=== PATIENT | male | born 1955 | race African-American/Black ===

== ENCOUNTER → 2016-09-05 | Outpatient (CLI) | payer OTHER ==
[~2016-09-05] MED LIST: ANT125 PO; MULTTAB58 PO; PRED-301 PO; [UNRECOGNIZED DRUG - CODE]; [UNRECOGNIZED DRUG - CODE] PO
[2016-09-05 15:54] LABS: BASO % 0.4 %; BASO ABS # 0.03 K/uL (0-0.2); COMPLETE YES; EOS % 1.1 %; IG% 0.2 %; LYMPH % 13.2 %; LYMPH ABS # 1.09 K/uL (1.2-3.4); MEAN CELL VOLUME 87.8 fL (80-100); MEAN CORPUSCULAR HEMOGLOBIN 29.5 pg (25-34); MEAN CORPUSCULAR HGB CONC 33.6 g/dl (32-36); MEAN PLATELET VOLUME 9.7 fL (7.4-10.4); MONO % 7.4 %; NEUT % 77.7 %; PLATELET COUNT 233 K/uL (130-400); RED BLOOD COUNT 5.01 M/uL (4.7-6.1); WHITE BLOOD COUNT 8.24 K/uL (4.8-10.8)
[2016-09-05 16:18] LABS: ALT/SGPT 75 U/L (12-78); AST/SGOT 38 U/L (15-37); BLOOD UREA NITROGEN 15 mg/dl (7-18); BUN/CREATININE RATIO 12.2 (10-20); CALCIUM 9.1 mg/dl (8.5-10.1); CARBON DIOXIDE 27 mmol/L (21-32); CHLORIDE 106 mmol/L (98-107); GLUCOSE 101 mg/dl (70-99); POTASSIUM 4.7 mmol/L (3.5-5.1); SODIUM 140 mmol/L (136-145)
[2016-09-05 16:29] LABS: ALB/GLOB RATIO 0.8 (0.9-2); ALKALINE PHOSPHATASE 173 U/L (45-117); CHOLESTEROL 273 mg/dl (0-200); CHOLESTEROL/HDL RATIO 7.2; HDL CHOLESTEROL 38 mg/dl; THYROID STIMULATING HORMONE 0.261 uIu/ml (0.300-4.500); TRIGLYCERIDES 257 mg/dl (0-150); VERY LOW DENSITY LIPOPROT CALC 51 mg/dl
[2016-09-06 06:17] LABS: ESTIMATED AVERAGE GLUCOSE 146 mg/dl; HA1C FLAG Normal (Normal)
[2016-09-08 14:46] LABS: ALBUMIN 4.6 G/DL (3.8-4.8); GAMMA GLOBULIN 1.5 G/DL (0.8-1.7); TOTAL PROTEIN 8.4 G/DL (6.2-8.3)
== END | disposition home or self-care (01) ==
LOC: C.LAB 14:39
PROVIDERS: ATTEND Internal Medicine
DX: R73.9 Hyperglycemia, unspecified (principal); R53.83 Other fatigue; E78.5 Hyperlipidemia, unspecified; D86.9 Sarcoidosis, unspecified; Z11.59 Encounter for screening for other viral diseases; R35.0 Frequency of micturition; N40.0 Benign prostatic hyperplasia without lower urinary tract symptoms

== ENCOUNTER → 2016-09-26 | Outpatient (CLI) | payer OTHER ==
--- NOTE | 2016-09-26 13:06 | DIAGNOSTIC IMAGING REPORT ---
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 Bilateral hilar fullness considered stable. Conglomerate densities of the mid and upper lung regions stable to minimally progressive primarily on the right. Diaphragms remain smooth. Diffuse interstitial fibrotic change remains stable. IMPRESSION: 1. Stable hilar fullness with unchanging diffuse bilateral interstitial change. 2. Slight increase in size of a conglomerate density of the right mid lung region. 3. All additional parenchymal findings are stable. Electronically signed by: Mahad Edwards M.D. 09/26/2016 1:05 PM Dictated Date/Time: 09/26/2016 1:03 PM
== END | disposition home or self-care (01) ==
LOC: C.RAD1850 12:35
PROVIDERS: ATTEND Internal Medicine Pulmonary Disease
DX: D86.0 Sarcoidosis of lung (principal)

== ENCOUNTER 2016-12-06 08:55 | Day surgery (SDC) | payer OTHER ==
[2016-12-06] VITALS (9 sets, daily range): BP systolic 109–131; BP diastolic 50–69; PULSE 48–53; TEMP 36.4–37; O2SAT 93–97; Ht 182.9 cm; Wt 95.7 kg
[~2016-12-06] VITALS: Ht 182.9 cm; Wt 95.7 kg
[~2016-12-06 08:55] MED LIST changes: -MULTTAB58 PO; -PRED-301 PO; -[UNRECOGNIZED DRUG - CODE] PO
[2016-12-06] MEDS ORDERED: PRED-301 PO (09:18)
[2016-12-06] MEDS ORDERED: [UNRECOGNIZED DRUG - CODE] PO (09:18)
[2016-12-06] MEDS ORDERED: MULTTAB58 PO (09:18)
[2016-12-06 09:30] LABS: HEMATOCRIT 43.1 % (42-52); MEAN CELL VOLUME 87.6 fL (80-100); MEAN CORPUSCULAR HEMOGLOBIN 29.5 pg (25-34); MEAN PLATELET VOLUME 9.3 fL (7.4-10.4); PLATELET COUNT 206 K/uL (130-400); RED BLOOD COUNT 4.92 M/uL (4.7-6.1); WHITE BLOOD COUNT 3.76 K/uL (4.8-10.8)
[2016-12-06 09:34] LABS: MEAN CORPUSCULAR HGB CONC 33.6 g/dl (32-36)
[2016-12-06 09:41] LABS: PROTHROMBIN TIME (PATIENT) 10.7 SECONDS (9.0-12.0)
--- NOTE | 2016-12-06 10:52 | Discharge Instructions ---
Discharge Instructions Procedure Procedure Date: Dec 06, 2016. Reason for visit: Low Vit D Level, Abnormal Labs. Discharge Discharge Date: Dec 06, 2016. Discharge Diagnosis: sarcoidosis. successful u/s guided percutaneous random liver biopsy of right lobe. Medications Restart Stopped Medication(s): Resume home meds Instructions Activity Recommendations: No limitations Return to School/Work: no limitations Recommended Home Diet: No Limitations Provider Instructions: Ultrasound guided Liver Core Biopsy performed [ Right] lobe liver using 18g needle without complication. Allergies Coded Allergies: Penicillins (Verified Adverse Reaction, Mild, SYNCOPE, 12/06/16) Xiomara Vega Recommendations: Call your doctor if: * Temperature above 101 degrees * Pain not relieved by pain medicine ordered * There is increased drainage or redness from any incision * You have any unanswered questions or concerns. Your Doctors Instructions noted above were prepared by provider Simon Mahan. Patient Signature Section: Patient Instructions Signature Page Anders Ahumada Patient (or Guardian) Signature/Date: I have read and understand the instructions given to me by my caregivers. Caregiver/RN/Doctor Signature/Date: The above-named patient and/or guardian has received patient instructions on this date. + Original Patient Signature Page (only) stays with chart. Please make copy for patient.
[2016-12-06] MEDS ORDERED: ACETAMINOPHEN 500 MG TAB PO PRN (11:00)
--- NOTE | 2016-12-06 11:22 | DIAGNOSTIC IMAGING REPORT ---
GUIDANCE NEEDLE PLACEMENT CLINICAL HISTORY: 61 years-old Male presenting with Please stage fibrosis, eval for evidence of NAFLD, sarcoid, AIH. TECHNIQUE: Real-time grayscale and limited color Doppler ultrasound imaging of the right upper quadrant of the abdomen was performed for ultrasound-guided core needle biopsy of the liver. COMPARISON: 08/27/2012. PROCEDURE: The risks, benefits, and alternatives to the procedure were discussed with the patient. Written informed consent was obtained. The patient was placed left lateral decubitus position on the ultrasound table. Using a subcostal approach, the right lobe of the liver was targeted with ultrasound for an appropriate location for random biopsy. The right upper quadrant was prepped and draped in the usual sterile fashion. The skin and deeper soft tissues were infiltrated with 1% lidocaine for anesthesia. The right lobe of the liver targeted under ultrasound guidance with an 18-gauge core needle biopsy. One pass was performed. The specimen was sent to pathology. The patient tolerated the procedure well, and will be observed in the department per protocol. IMPRESSION: Successful ultrasound-guided percutaneous random core needle biopsy of the liver. Electronically signed by: Simon Mahan M.D. 12/06/2016 11:21 AM Dictated Date/Time: 12/06/2016 11:18 AM
== END 2016-12-06 13:50 | disposition home or self-care (01) ==
LOC: C.ACU 08:55
PROVIDERS: ATTEND Internal Medicine Gastroenterology
DX: E55.9 Vitamin D deficiency, unspecified (principal); D86.9 Sarcoidosis, unspecified; K73.9 Chronic hepatitis, unspecified

== ENCOUNTER → 2016-12-26 | Outpatient (CLI) | payer OTHER ==
[~2016-12-26] MED LIST changes: -ANT125 PO; +MULTTAB58 PO; +PRED-301 PO; -[UNRECOGNIZED DRUG - CODE]; +[UNRECOGNIZED DRUG - CODE] PO
[2016-12-26 16:30] LABS: BLOOD UREA NITROGEN 25 mg/dl (7-18); CALCIUM 9.3 mg/dl (8.5-10.1); CARBON DIOXIDE 24 mmol/L (21-32); CHLORIDE 107 mmol/L (98-107); GLUCOSE 93 mg/dl (70-99); SODIUM 138 mmol/L (136-145)
[2016-12-27 06:14] LABS: ESTIMATED AVERAGE GLUCOSE 137 mg/dl; HA1C FLAG Normal (Normal)
== END | disposition home or self-care (01) ==
LOC: C.LABSPEC 14:57
PROVIDERS: ATTEND Internal Medicine
DX: E11.9 Type 2 diabetes mellitus without complications (principal)

== ENCOUNTER → 2016-12-26 | Outpatient (CLI) | payer OTHER ==
--- NOTE | 2016-12-26 13:03 | DIAGNOSTIC IMAGING REPORT ---
LEFT HEEL MIN 2 VIEWS CLINICAL HISTORY: 61 years-old Male presenting with L HEEL PAIN. TECHNIQUE: Frontal and lateral views of the calcaneus were obtained. COMPARISON: None. FINDINGS: Os trigonum noted. No acute fracture or subluxation. No abnormal sclerosis in the calcaneus to suggest stress reaction. No significant degenerative change, including no bony spurring at the inferior calcaneus. IMPRESSION: No acute osseous injury of the calcaneus. Electronically signed by: Simon Mahan M.D. 12/26/2016 1:02 PM Dictated Date/Time: 12/26/2016 1:01 PM
== END | disposition home or self-care (01) ==
LOC: C.RAD 12:33
PROVIDERS: ATTEND Internal Medicine
DX: M79.672 Pain in left foot (principal)

== ENCOUNTER 2017-03-29 16:50 | Emergency (ER) | payer OTHER ==
[~2017-03-29] VITALS: Ht 182.9 cm; Wt 80.3 kg
[2017-03-29 16:55] VITALS: TEMP 36.3; Ht 182.9 cm; Wt 80.3 kg
[2017-03-29] MEDS ORDERED: OPTIRAY 320 IV PRN (18:00)
--- NOTE | 2017-03-29 18:09 | EMERGENCY ROOM VISIT NOTE ---
History First contact with patient: 17:05 Chief Complaint: NECK PAIN Stated Complaint: PAIN IN NECK History of Present Illness The patient is a 61 year old male who presents to the Emergency Room with complaints of right neck pain The patient says that the pain began at 4pm today as sudden right sided neck pain that radiated to his jaw. He reports that his right jaw became tight and felt similar to the sensation of eating something sour. The patient took two Advil, sat down and reports that the pain dissipated after a couple minutes. Patient denies having this particular pain in the past or injury to his neck. Patient denies SOB, LE edema or syncopal episodes. Patient has a PMH of sarcoidosis. He denies h/o HTN, HLD, diabetes. Patient does have a family history significant for UT and stroke in his mother and intracranial aneurysm in his sister. Patient is a current 8 pack year smoker. Review of Systems see below Constitutional: No fever, No chills, No sweats Respiratory: No cough, No sputum, No wheezing, No shortness of breath, No dyspnea on exertion Cardiovascular: No chest pain, No orthopnea, No edema, No palpitations Abdomen: No pain, No nausea, No vomiting, No diarrhea Past Medical/Surgical History Medical Problems: (1) Kidney problem Social History Smoking Status: Current Some Day Smoker Marital Status: Current/Historical Medications Scheduled Multiple Vitamin (Multivitamin), 1 TAB PO DAILY Prednisone (Prednisone), 5 MG PO DAILY Ursodiol (Nickolas 250), 500 MG PO DAILY Physical Exam Vital Signs Date Time Temp Pulse Resp B/P (MAP) Pulse Ox O2 Delivery O2 Flow Rate FiO2 03/29/17 20:34 59 16 118/79 97 03/29/17 18:50 53 18 116/80 94 Room Air 03/29/17 17:31 56 03/29/17 16:55 36.3 78 16 121/76 98 Room Air Physical Exam see below General Appearance: WD/WN, no apparent distress Head: normocephalic, atraumatic Neck: supple, no adenopathy, no carotid bruits Respiratory/Chest: chest non-tender, lungs clear, normal breath sounds, no respiratory distress, no accessory muscle use Cardiovascular: regular rate, rhythm, no edema, no gallop Abdomen / GI: normal bowel sounds, non tender, soft Neurologic/Psych: alert, normal mood/affect, oriented x 3 Medical Decision & Procedures ER Provider Diagnostic Interpretation: CHEST ONE VIEW PORTABLE HISTORY: neck pain, radiating to arm COMPARISON: Chest 09/26/2016. FINDINGS: No pleural effusions. No pneumothorax. The heart is stable in size. Bilateral hilar prominence and course interstitial thickening persists. Focal upper lobe airspace opacities also unchanged. No new focal lung consolidations. No evidence for pulmonary edema. IMPRESSION: No change compared to the prior studies with bilateral hilar fullness and scattered interstitial and parenchymal densities within the lungs. The chronic nature of this finding favors the possibility of sarcoidosis. No acute process within the chest. NECK CTA HISTORY: Neck pain. TECHNIQUE: Multiaxial CT images of the neck were performed following the intravenous administration of contrast to evaluate the major cervical vessels. Maximum intensity projection images were also obtained. All measurements were calculated based on NASCET criteria. A dose lowering technique was utilized adhering to the principles of ALARA. COMPARISON STUDY: Neck CT 06/16/2010. FINDINGS: The aortic arch and proximal great vessels are widely patent. The bilateral common carotid arteries and bilateral internal carotid arteries are widely patent. There are tortuous distal bilateral internal carotid arteries. Minimal calcified plaque within the right carotid bulb. The left vertebral artery is widely patent. The cervical portion of the right vertebral artery is also patent. Focal area of approximately 75% stenosis within the intracranial portion of the distal right vertebral artery. Bilateral internal jugular veins appear patent. Chronic hypoplastic left maxillary sinus which demonstrates mild mucosal thickening. No cervical lymphadenopathy. There is mediastinal and bilateral hilar lymphadenopathy. Dominant subcarinal lymph node measures 3.5 cm. The main pulmonary arteries are patent. No pneumothorax. Multifocal irregular nodular airspace opacities demonstrated in upper lobe predominance with confluent right perihilar consolidation. Mild degenerative disc disease seen within the cervical spine. No fractures. IMPRESSION: 1. No significant stenosis, occlusion, or dissection identified within the carotid or cervical vertebral arteries. 2. Focal area of approximately 75% stenosis within the intracranial portion of the distal right vertebral artery. 3. Mediastinal and bilateral hilar lymphadenopathy. There are also multifocal upper lobe predominant irregular nodular airspace opacities seen within the lungs. These findings favor sarcoidosis. However, an underlying neoplastic/metastatic process cannot be excluded. Laboratory Results 03/29/17 18:10 Red Blood Count 4.65, Mean Corpuscular Volume 88.8, Mean Corpuscular Hemoglobin 30.8, Mean Corpuscular Hemoglobin Concent 34.6, Mean Platelet Volume 9.6, Neutrophils (%) (Auto) 68.4, Lymphocytes (%) (Auto) 17.1, Monocytes (%) (Auto) 10.2, Eosinophils (%) (Auto) 3.0, Basophils (%) (Auto) 1.1, Neutrophils # (Auto ) 3.16, Lymphocytes # (Auto) 0.79, Monocytes # (Auto) 0.47, Eosinophils # (Auto ) 0.14, Basophils # (Auto) 0.05 03/29/17 18:10 Test 03/29/17 18:10 03/29/17 18:25 03/29/17 19:52 White Blood Count 4.62 K/uL (4.8-10.8) Red Blood Count 4.65 M/uL (4.7-6.1) Hemoglobin 14.3 g/dL (14.0-18.0) Hematocrit 41.3 % (42-52) Mean Corpuscular Volume 88.8 fL (80-100) Mean Corpuscular Hemoglobin 30.8 pg (25-34) Mean Corpuscular Hemoglobin Concent 34.6 g/dl (32-36) Platelet Count 220 K/uL (130-400) Mean Platelet Volume 9.6 fL (7.4-10.4) Neutrophils (%) (Auto) 68.4 % Lymphocytes (%) (Auto) 17.1 % Monocytes (%) (Auto) 10.2 % Eosinophils (%) (Auto) 3.0 % Basophils (%) (Auto) 1.1 % Neutrophils # (Auto) 3.16 K/uL (1.4-6.5) Lymphocytes # (Auto) 0.79 K/uL (1.2-3.4) Monocytes # (Auto) 0.47 K/uL (0.11-0.59) Eosinophils # (Auto) 0.14 K/uL (0-0.5) Basophils # (Auto) 0.05 K/uL (0-0.2) RDW Standard Deviation 41.6 fL (36.4-46.3) RDW Coefficient of Variation 12.9 % (11.5-14.5) Immature Granulocyte % (Auto) 0.2 % Immature Granulocyte # (Auto) 0.01 K/uL (0.00-0.02) Est Creatinine Clear Calc Drug Dose 70.4 ml/min Estimated GFR () 73.3 Estimated GFR (Non- 63.2 BUN/Creatinine Ratio 17.0 (10-20) Calcium Level 9.3 mg/dl (8.5-10.1) Total Bilirubin 0.3 mg/dl (0.2-1) Aspartate Amino Transf (AST/SGOT) 39 U/L (15-37) Alanine Aminotransferase (ALT/SGPT) 68 U/L (12-78) Alkaline Phosphatase 135 U/L (45-117) Total Protein 7.9 gm/dl (6.4-8.2) Albumin 3.7 gm/dl (3.4-5.0) Globulin 4.2 gm/dl (2.5-4.0) Albumin/Globulin Ratio 0.9 (0.9-2) Chemistry Specimen Hemolysis Bedside Hemoglobin 16.0 g/dl (14.0-18.0) Bedside Hematocrit 47 % (42-52) Bedside Sodium 133 mEq/L (135-144) Bedside Potassium 6.9 mEq/L (3.3-5.0) Bedside Chloride 102 mEq/L (101-112) Bedside Total CO2 23 mEq/l (24-31) Anion Gap 15.0 mmol/L (16-25) Bedside Blood Urea Nitrogen 35 mg/dl (7-18) Bedside Creatinine 1.9 mg/dl (0.6-1.3) Bedside Glucose (other) 84 mg/dl (70-99) Bedside Ionized Calcium (Stuart) 1.25 mmol/l (1.12-1.32) Bedside Troponin I < 0.030 ng/ml (0-0.045) ECG Rate (beats per minute): 58 Rhythm: normal sinus Findings: no ectopy Change: no significant change ED Course 1730 History and physical performed 1745 ordered labs and imaging 1800 Reaccessed the patient 1845 Patient brought to radiology Medical Decision 61 male PMH of sarcoidosis comes to the ED with right sided neck pain radiating down his right arm Considering the following differential; carotid artery dissection, vertebral artery dissection, ACS, cervical radiculopathy Ordered the following labs; CBC, CMP, Troponin Ordered the following imaging and test; EKG, CXR, CXR, CTA of neck with contrast The patient's history today is not especially suspicious for ACS/CVA, but it was seen prudent to complete a thorough cardiovascular/neurovascular work up considering the patients PMH of immunologic disease as well as his family history of CVA. Patient was found to have unremarkable EKG with no new changes. In addition, the patient was found to have no changes on CXR. Patient's CXR correlated with previous studies that show bilateral hilar opacities consistent with sarcoidosis. 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 This is unlikely the cause of the patient's symptoms, but nonetheless needs to be closely followed up by his PCP. Patient was also instructed to start on 81 mg of ASA daily. Impression Primary Impression: Neck pain Departure Information Dispostion Home / Self-Care Condition GOOD Referrals Alberto Amaro M.D. (PCP) Forms HOME CARE DOCUMENTATION FORM, IMPORTANT VISIT INFORMATION, WORK / SCHOOL INSTRUCTIONS Patient Instructions My [facility] [email or web address] Additional Instructions CHEST PAIN INSTRUCTIONS: DO NOT drive, drink alcohol, operate machinery, or perform dangerous activities today. You Mr. Ahumada, You were seen in the ED for neck pain. Considering your family history, a cerebrovascular workup was initiated. CT of your neck showed some blockage in a artery to your brain. The blockage is not critical at this point and not likely the cause of your pain, but you should follow up very closely with your primary care doctor. In addition, please take 81mg of ASA daily. All other test were unremarkable. Read all the package inserts or medication information paperwork provided. If you have any questions or concerns call your primary provider, pharmacist or the ER for assistance. Rest and drink plenty of fluids as tolerated. Continue current medications. Avoid strenuous activities and anything that worsens your pain. Resume normal activities once your symptoms resolve. Return to the ER immediately for worsening or persistent chest pain, abdominal pain, vomiting, fevers, chest pains, difficulty breathing, worsening of your condition , or as needed. Follow up with your primary physician in 2-3 days for a recheck of your current condition.
--- NOTE | 2017-03-29 18:09 | EMERGENCY ROOM VISIT NOTE ---
History Report prepared by Logan: Shy Dickens Under the Supervision of: Dr. Riki Wilde M.D. 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 He notes that he went to stand up to go brush his teeth and there was a sudden onset of right neck pain. He notes a sour sensation in his jaw. He describes the pain as a cramp and he could not move his jaw. He notes the pain radiated to his jaw and right arm. He notes the episode lasted for 15 minutes. He is not currently in any pain. He also notes leg cramping this morning. He denies any neck injuries, ear pain, diaphoresis, chest pain, shortness of breath, headaches, nausea, vomiting, speech issues, dental issues, leg pain, or leg swelling. He exercises regularly. He notes a history of pre-diabetes. He has a history of sarcoidosis, for which he takes prednisone. He has a family history of CVA and intracranial aneurysm. He denies any history of HLD, HTN, or angina. He took Ibuprofen for the neck pain. 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 He notes cramping pain in jaw. He notes right arm pain. He notes leg cramps. He denies any neck injuries, ear pain, speech issues, dental issues, leg pain, or leg swelling. Review of Systems See HPI for pertinent positives & negatives. A total of 10 systems reviewed and were otherwise negative. Past Medical & Surgical Medical Problems: (1) Kidney problem Sarcoidosis Denies diabetes or hypertension or cardiac disease Old medical records were reviewed. Nurse's notes were reviewed and I agree with. Family History FH: CVA (cerebrovascular accident) FH: colon cancer Intracranial aneurysms Social History Smoking Status: Never Smoker Smokeless Tobacco Use: No Alcohol Use: none Drug Use: none Marital Status: Housing Status: lives with significant other Occupation Status: employed Current/Historical Medications Scheduled Multiple Vitamin (Multivitamin), 1 TAB PO DAILY Prednisone (Prednisone), 5 MG PO DAILY Ursodiol (Nickolas 250), 500 MG PO DAILY Allergies Coded Allergies: Penicillins (Verified Adverse Reaction, Mild, SYNCOPE, 03/29/17) Physical Exam Vital Signs Date Time Temp Pulse Resp B/P (MAP) Pulse Ox O2 Delivery O2 Flow Rate FiO2 03/29/17 20:34 59 16 118/79 97 03/29/17 18:50 53 18 116/80 94 Room Air 03/29/17 17:31 56 03/29/17 16:55 36.3 78 16 121/76 98 Room Air Physical Exam General: Non-ill appearing middle-aged male in no acute distress. HEENT: Normal cephalic atraumatic. Pupils are equal round and reactive to light. Extraocular movements are intact. Oropharynx is pink with moist mucous membranes. No swelling of the mouth lips or tongue. Neck: Supple with a midline trachea. No meningeal signs or stiffness, no JVD or bruits. No Stridor. Non-tender. No edema. Chest: Clear to auscultation bilaterally. No wheezes or rhonchi. No increased work of breathing. Heart: regular rate and rhythm. Abdomen: Soft nontender, nondistended without rebound guarding or rigidity. Extremities: No cyanosis clubbing or edema. No calf tenderness or assymetry Spine/Back. Non tender to palpation. No CVA tenderness Skin: Good turgor without rashes. Neurologic exam: Cranial nerves two through 12 are intact. Motor and sensation are intact and symmetrical throughout. Medical Decision & Procedures ER Provider Diagnostic Interpretation: Radiology results as stated below per my review and radiologist interpretation: CHEST ONE VIEW PORTABLE HISTORY: neck pain, radiating to arm COMPARISON: Chest 09/26/2016. FINDINGS: No pleural effusions. No pneumothorax. The heart is stable in size. Bilateral hilar prominence and course interstitial thickening persists. Focal upper lobe airspace opacities also unchanged. No new focal lung consolidations. No evidence for pulmonary edema. IMPRESSION: No change compared to the prior studies with bilateral hilar fullness and scattered interstitial and parenchymal densities within the lungs. The chronic nature of this finding favors the possibility of sarcoidosis. No acute process within the chest. Electronically signed by: Osiel Estrada M.D. 03/29/2017 6:32 PM Dictated Date/Time: 03/29/2017 6:26 PM NECK CTA HISTORY: Neck pain. TECHNIQUE: Multiaxial CT images of the neck were performed following the intravenous administration of contrast to evaluate the major cervical vessels. Maximum intensity projection images were also obtained. All measurements were calculated based on NASCET criteria. A dose lowering technique was utilized adhering to the principles of ALARA. COMPARISON STUDY: Neck CT 06/16/2010. FINDINGS: The aortic arch and proximal great vessels are widely patent. The bilateral common carotid arteries and bilateral internal carotid arteries are widely patent. There are tortuous distal bilateral internal carotid arteries. Minimal calcified plaque within the right carotid bulb. The left vertebral artery is widely patent. The cervical portion of the right vertebral artery is also patent. Focal area of approximately 75% stenosis within the intracranial portion of the distal right vertebral artery. Bilateral internal jugular veins appear patent. Chronic hypoplastic left maxillary sinus which demonstrates mild mucosal thickening. No cervical lymphadenopathy. There is mediastinal and bilateral hilar lymphadenopathy. Dominant subcarinal lymph node measures 3.5 cm. The main pulmonary arteries are patent. No pneumothorax. Multifocal irregular nodular airspace opacities demonstrated in upper lobe predominance with confluent right perihilar consolidation. Mild degenerative disc disease seen within the cervical spine. No fractures. IMPRESSION: 1. No significant stenosis, occlusion, or dissection identified within the carotid or cervical vertebral arteries. 2. Focal area of approximately 75% stenosis within the intracranial portion of the distal right vertebral artery. 3. Mediastinal and bilateral hilar lymphadenopathy. There are also multifocal upper lobe predominant irregular nodular airspace opacities seen within the lungs. These findings favor sarcoidosis. However, an underlying neoplastic/metastatic process cannot be excluded. Electronically signed by: Osiel Estrada M.D. 03/29/2017 7:27 PM Dictated Date/Time: 03/29/2017 7:18 PM Laboratory Results 03/29/17 18:10 Red Blood Count 4.65, Mean Corpuscular Volume 88.8, Mean Corpuscular Hemoglobin 30.8, Mean Corpuscular Hemoglobin Concent 34.6, Mean Platelet Volume 9.6, Neutrophils (%) (Auto) 68.4, Lymphocytes (%) (Auto) 17.1, Monocytes (%) (Auto) 10.2, Eosinophils (%) (Auto) 3.0, Basophils (%) (Auto) 1.1, Neutrophils # (Auto ) 3.16, Lymphocytes # (Auto) 0.79, Monocytes # (Auto) 0.47, Eosinophils # (Auto ) 0.14, Basophils # (Auto) 0.05 03/29/17 18:10 Test 03/29/17 18:10 03/29/17 18:25 03/29/17 19:52 White Blood Count 4.62 K/uL (4.8-10.8) Red Blood Count 4.65 M/uL (4.7-6.1) Hemoglobin 14.3 g/dL (14.0-18.0) Hematocrit 41.3 % (42-52) Mean Corpuscular Volume 88.8 fL (80-100) Mean Corpuscular Hemoglobin 30.8 pg (25-34) Mean Corpuscular Hemoglobin Concent 34.6 g/dl (32-36) Platelet Count 220 K/uL (130-400) Mean Platelet Volume 9.6 fL (7.4-10.4) Neutrophils (%) (Auto) 68.4 % Lymphocytes (%) (Auto) 17.1 % Monocytes (%) (Auto) 10.2 % Eosinophils (%) (Auto) 3.0 % Basophils (%) (Auto) 1.1 % Neutrophils # (Auto) 3.16 K/uL (1.4-6.5) Lymphocytes # (Auto) 0.79 K/uL (1.2-3.4) Monocytes # (Auto) 0.47 K/uL (0.11-0.59) Eosinophils # (Auto) 0.14 K/uL (0-0.5) Basophils # (Auto) 0.05 K/uL (0-0.2) RDW Standard Deviation 41.6 fL (36.4-46.3) RDW Coefficient of Variation 12.9 % (11.5-14.5) Immature Granulocyte % (Auto) 0.2 % Immature Granulocyte # (Auto) 0.01 K/uL (0.00-0.02) Est Creatinine Clear Calc Drug Dose 70.4 ml/min Estimated GFR () 73.3 Estimated GFR (Non- 63.2 BUN/Creatinine Ratio 17.0 (10-20) Calcium Level 9.3 mg/dl (8.5-10.1) Total Bilirubin 0.3 mg/dl (0.2-1) Aspartate Amino Transf (AST/SGOT) 39 U/L (15-37) Alanine Aminotransferase (ALT/SGPT) 68 U/L (12-78) Alkaline Phosphatase 135 U/L (45-117) Total Protein 7.9 gm/dl (6.4-8.2) Albumin 3.7 gm/dl (3.4-5.0) Globulin 4.2 gm/dl (2.5-4.0) Albumin/Globulin Ratio 0.9 (0.9-2) Chemistry Specimen Hemolysis Bedside Hemoglobin 16.0 g/dl (14.0-18.0) Bedside Hematocrit 47 % (42-52) Bedside Sodium 133 mEq/L (135-144) Bedside Potassium 6.9 mEq/L (3.3-5.0) Bedside Chloride 102 mEq/L (101-112) Bedside Total CO2 23 mEq/l (24-31) Anion Gap 15.0 mmol/L (16-25) Bedside Blood Urea Nitrogen 35 mg/dl (7-18) Bedside Creatinine 1.9 mg/dl (0.6-1.3) Bedside Glucose (other) 84 mg/dl (70-99) Bedside Ionized Calcium (Stuart) 1.25 mmol/l (1.12-1.32) Bedside Troponin I < 0.030 ng/ml (0-0.045) Laboratory studies as stated above per my review. ECG Indication: other (neck pain) Rate (beats per minute): 52 Rhythm: sinus bradycardia Findings: no acute ischemic change, other (Non-specific T wave abnormality. ) Change: ST segments are normal now. Non-specific T waves were present when compared to . Repeat ECG SB 49 with findings: 1st degree AV block and non-specific T wave changes and no other significant changes when compared to ECG from today, 2016. ED Course 1731: Past medical records reviewed. The patient was evaluated in room B2, and a complete history and physical examination were performed. 1823: I reassessed the patient at this time. He is feeling better and resting comfortably. 1934: I reassessed the patient at this time. I spoke with the patient's . 2009: I reassessed the patient at this time. He is asymptomatic. He is feeling better and resting comfortably. I discussed the results and treatment plan with the patient. I answered all pertaining questions that he had. He expressed understanding and verbalized agreement. The patient will be discharged home. Medical Decision Differentials include, but are not limited to; cardiac disease, musculoskeletal etiology, vascular disease, neurologic process, and electrolyte or metabolic abnormality. This patient comes in as described above. He had episode and neck pain that at one point went down his arm. There is no numbness or weakness. He had no trauma. There is no chest pain or shortness breath or palpitations. He is feeling better at present is asymptomatic. IV access established and EKG was obtained which shows no definite acute ischemic changes. Chest x-ray was obtained as well as multiple blood testing also to CAT scan of his neck to rule out any vascular abnormalities as well as kidney musculoskeletal/bony abnormalities. The patient was reassessed frequently. He looks and feels good. His second EKG looks unchanged from the first. He has 2 troponins done 90 minutes apart which are both 0. His no acute electrolyte or metabolic abnormalities. CT of the neck shows no acute abnormalities. He does have an area of 75% stenosis in the posterior circulation on the right. I think this is an incidental finding as symptoms do not suggest a posterior circulation event. I do think he needs a follow-up with his regular doctor. I will start him on a baby aspirin a day. He feels good and like to go home he should return if: Recurrence of symptoms, chest pain, shortness of breath, fever or chills, any new problems or concerns. The patient and his were happy with plan. He was discharged home and should follow up with his regular doctor this coming week for recheck. Note: Point of care labs from a different patient were erroneously placed in this patient's chart. There were no point of care labs ordered or performed on this patient and it was confirmed that this was an error. We did speak to Naheed Anglin in the lab and this will be corrected in the morning. Medication Reconcilliation Current Medication List: was personally reviewed by me Blood Pressure Screening Patient's blood pressure: Normal blood pressure Impression Primary Impression: Neck pain on right side Scribe Attestation The scribe's documentation has been prepared under my direction and personally reviewed by me in its entirety. I confirm that the note above accurately reflects all work, treatment, procedures, and medical decision making performed by me. Departure Information Dispostion Home / Self-Care Referrals No Doctor, Assigned (PCP) Forms HOME CARE DOCUMENTATION FORM, IMPORTANT VISIT INFORMATION, WORK / SCHOOL INSTRUCTIONS Patient Instructions My [facility] Additional Instructions Mr. Ahumada, You were seen in the ED for neck pain. Considering your family history, a cerebrovascular workup was initiated. CT of your neck showed some blockage in a artery to your brain. The blockage is not critical at this point and not likely the cause of your pain, but you should follow up very closely with your primary care doctor. In addition, please take 81mg of ASA daily. All other test were unremarkable. Read all the package inserts or medication information paperwork provided. If you have any questions or concerns call your primary provider, pharmacist or the ER for assistance. Rest and drink plenty of fluids as tolerated. Continue current medications. Avoid strenuous activities and anything that worsens your pain. Resume normal activities once your symptoms resolve. Return to the ER immediately for worsening or persistent chest pain, abdominal pain, vomiting, fevers, chest pains, difficulty breathing, worsening of your condition, or as needed. Follow up with your primary physician in 2-3 days for a recheck of your current condition.
[2017-03-29 18:30] LABS: BASO % 1.1 %; BASO ABS # 0.05 K/uL (0-0.2); COMPLETE YES; HEMATOCRIT 41.3 % (42-52); IG% 0.2 %; LYMPH % 17.1 %; LYMPH ABS # 0.79 K/uL (1.2-3.4); MEAN CELL VOLUME 88.8 fL (80-100); MEAN CORPUSCULAR HEMOGLOBIN 30.8 pg (25-34); MEAN CORPUSCULAR HGB CONC 34.6 g/dl (32-36); MEAN PLATELET VOLUME 9.6 fL (7.4-10.4); MONO % 10.2 %; NEUT % 68.4 %; PLATELET COUNT 220 K/uL (130-400); RED BLOOD COUNT 4.65 M/uL (4.7-6.1); WHITE BLOOD COUNT 4.62 K/uL (4.8-10.8)
--- NOTE | 2017-03-29 18:34 | DIAGNOSTIC IMAGING REPORT ---
CHEST ONE VIEW PORTABLE HISTORY: neck pain, radiating to arm COMPARISON: Chest 09/26/2016. FINDINGS: No pleural effusions. No pneumothorax. The heart is stable in size. Bilateral hilar prominence and course interstitial thickening persists. Focal upper lobe airspace opacities also unchanged. No new focal lung consolidations. No evidence for pulmonary edema. IMPRESSION: No change compared to the prior studies with bilateral hilar fullness and scattered interstitial and parenchymal densities within the lungs. The chronic nature of this finding favors the possibility of sarcoidosis. No acute process within the chest. Electronically signed by: Osiel Estrada M.D. 03/29/2017 6:32 PM Dictated Date/Time: 03/29/2017 6:26 PM
[2017-03-29 18:41] LABS: ISTAT CREATININE 1.9 mg/dl (0.6-1.3); ISTAT IONIZED CALCIUM 1.25 mmol/l (1.12-1.32)
[2017-03-29 18:52] LABS: CALCIUM 9.3 mg/dl (8.5-10.1); CREATININE 1.24 mg/dl (0.60-1.40); POTASSIUM 4.2 mmol/L (3.5-5.1)
[2017-03-29 19:01] LABS: ALB/GLOB RATIO 0.9 (0.9-2)
--- NOTE | 2017-03-29 19:28 | DIAGNOSTIC IMAGING REPORT ---
NECK CTA HISTORY: Neck pain. TECHNIQUE: Multiaxial CT images of the neck were performed following the intravenous administration of contrast to evaluate the major cervical vessels. Maximum intensity projection images were also obtained. All measurements were calculated based on NASCET criteria. A dose lowering technique was utilized adhering to the principles of ALARA. COMPARISON STUDY: Neck CT 06/16/2010. FINDINGS: The aortic arch and proximal great vessels are widely patent. The bilateral common carotid arteries and bilateral internal carotid arteries are widely patent. There are tortuous distal bilateral internal carotid arteries. Minimal calcified plaque within the right carotid bulb. The left vertebral artery is widely patent. The cervical portion of the right vertebral artery is also patent. Focal area of approximately 75% stenosis within the intracranial portion of the distal right vertebral artery. Bilateral internal jugular veins appear patent. Chronic hypoplastic left maxillary sinus which demonstrates mild mucosal thickening. No cervical lymphadenopathy. There is mediastinal and bilateral hilar lymphadenopathy. Dominant subcarinal lymph node measures 3.5 cm. The main pulmonary arteries are patent. No pneumothorax. Multifocal irregular nodular airspace opacities demonstrated in upper lobe predominance with confluent right perihilar consolidation. Mild degenerative disc disease seen within the cervical spine. No fractures. IMPRESSION: 1. No significant stenosis, occlusion, or dissection identified within the carotid or cervical vertebral arteries. 2. Focal area of approximately 75% stenosis within the intracranial portion of the distal right vertebral artery. 3. Mediastinal and bilateral hilar lymphadenopathy. There are also multifocal upper lobe predominant irregular nodular airspace opacities seen within the lungs. These findings favor sarcoidosis. However, an underlying neoplastic/metastatic process cannot be excluded. Electronically signed by: Osiel Estrada M.D. 03/29/2017 7:27 PM Dictated Date/Time: 03/29/2017 7:18 PM
[2017-03-29 20:34] VITALS: BP 118/79; PULSE 59; O2SAT 97
== END 2017-03-29 20:35 | disposition home or self-care (01) ==
LOC: C.EDB 16:51
DX: M54.2 Cervicalgia (principal); D86.9 Sarcoidosis, unspecified; F17.200 Nicotine dependence, unspecified, uncomplicated; Z82.3 Family history of stroke; Z82.49 Family history of ischemic heart disease and other diseases of the circulatory system; Z80.0 Family history of malignant neoplasm of digestive organs; Z79.52 Long term (current) use of systemic steroids

== ENCOUNTER 2017-06-09 22:25 | Emergency (ER) | payer OTHER ==
[~2017-06-09] VITALS: Ht 182.9 cm; Wt 98.1 kg
[2017-06-09 22:42] VITALS: TEMP 36.8; Ht 182.9 cm; Wt 98.1 kg
--- NOTE | 2017-06-09 23:43 | DIAGNOSTIC IMAGING REPORT ---
RIGHT KNEE 3 VIEWS CLINICAL HISTORY: Right knee pain. FINDINGS: AP, crosstable lateral, and sunrise views of the right knee are obtained. No prior studies are available for comparison at the time of dictation. The skeletal structures are well mineralized. No fracture is seen. There is mild narrowing at the patellofemoral articulation. The medial and lateral compartments are maintained. There are small lateral marginal osteophytes and large patellar enthesophytes. A joint effusion is noted. Mild prepatellar soft tissue swelling is observed. Bony overgrowth is seen from the anterior tibial tuberosity. IMPRESSION: Joint effusion and mild soft tissue swelling. No fracture is seen. Electronically signed by: Randy Cheema M.D. 06/09/2017 11:42 PM Dictated Date/Time: 06/09/2017 11:41 PM
[2017-06-09] MEDS ORDERED: CHOL1000 PO (23:44)
[2017-06-09] MEDS ORDERED: ASPCH81X PO (23:44)
[2017-06-10] MEDS ORDERED: OXYCODONE IR HOME PACK PO ONE
[2017-06-10 00:17] VITALS: BP 162/84; PULSE 78; O2SAT 98
--- NOTE | 2017-06-10 01:22 | EMERGENCY ROOM VISIT NOTE ---
History First contact with patient: 22:53 Chief Complaint: KNEEPAIN Stated Complaint: KNEE PAIN History of Present Illness The patient is a 61 year old male who presents to the Emergency Room with complaints of persistent right knee pain after hitting his knee on a car bumper 4 days ago. The patient reports that he did have some discomfort, but went home and ran on a treadmill. The patient reports that the following day, his knee was significant painful, and has progressively worsened. He now reports difficulty walking and extending the leg. He denies any pain extending into the thigh. He has noticed some swelling over the front of the knee. He rates his discomfort a 7 out of 10. Review of Systems 10 system review was performed and was negative except for pertinent positives and negatives as indicated in history of present illness Past Medical/Surgical History Medical Problems: (1) Kidney problem Family History FH: CVA (cerebrovascular accident) FH: colon cancer Intracranial aneurysms Social History Smoking Status: Former Smoker Alcohol Use: none Drug Use: none Marital Status: Housing Status: lives with significant other Occupation Status: employed Current/Historical Medications Scheduled Aspirin (Aspirin Chewable), 81 MG PO DAILY Cholecalciferol (Vitamin D3), 1 TAB PO BID Multiple Vitamin (Multivitamin), 1 TAB PO DAILY Prednisone (Prednisone), 5 MG PO DAILY Ursodiol (Nickolas 250), 500 MG PO DAILY Physical Exam Vital Signs Date Time Temp Pulse Resp B/P (MAP) Pulse Ox O2 Delivery O2 Flow Rate FiO2 06/10/17 00:17 78 18 162/84 98 06/09/17 22:42 36.8 70 16 143/81 94 Room Air Physical Exam CONSTITUTIONAL: Healthy and well nourished. Alert and oriented X 3 with positive affect. She appears in mild discomfort from pain. HEENT: Normocephalic, atraumatic. Pupils equal, round and reactive. NECK: Full active range of motion without discomfort. MUSCULOSKELETAL: Examination of the right knee shows notable tenderness to palpation over the patella. Mild joint effusion is noted area he has no focal tenderness to palpation through the distal quadriceps, quadriceps tendon or patellar tendon. Straight leg raise worsens his discomfort. Collateral ligaments are intact. Pedal pulses are intact. INTEGUMENTARY: No rash or other significant dermatologic conditions noted. NEUROLOGIC: Right lower extremity is sensory intact. Medical Decision & Procedures ER Provider Diagnostic Interpretation: My interpretation of right knee x-rays shows a lateral margin fracture that does not at appear to extend transversely through the patella. Radiologist report is pending. Medications Administered Medications (Trade) Dose Ordered Sig/Sergei Route Start Time Stop Time Status Last Admin Dose Admin Oxycodone HCl (Roxicodone Immediate Rel 5MG Home Pack) 1 homepack UD ONCE PO 06/10/17 00:00 06/10/17 00:01 DC 06/10/17 00:11 1 HOMEPACK ED Course Patient history and physical exam were performed. Nurse's notes were reviewed. Vital signs were reviewed and were normal. The patient refused any analgesics on initial exam. X-rays of the right knee confirms lateral margin fracture of the patella. A knee immobilizer was applied. The patient refused crutches. He was encouraged to intermittently apply ice to the knee. Ibuprofen and Tylenol in alternating fashion for baseline pain relief. The patient refused any prescription analgesics, but did request something to take home tonight to help him sleep. He was dispensed an OxyIR home pack. The patient was instructed to follow-up with [facility] for further reevaluation and management. The patient was happy with plan of care, voiced understanding of all discharge instructions, and rated his pain a 5 out of 10 at the conclusion of my exam. Medical Decision [place] Drug Monitoring Program Search Results: patient reviewed within database, no issues identified Medication Reconcilliation Current Medication List: was personally reviewed by me Blood Pressure Screening Patient's blood pressure: Normal blood pressure Impression Primary Impression: Right patella fracture Departure Information Dispostion Home / Self-Care Condition FAIR Referrals Guanaco Bob M.D. Forms HOME CARE DOCUMENTATION FORM, IMPORTANT VISIT INFORMATION Patient Instructions My [facility] Additional Instructions Ice and elevate knee for swelling and pain. Wear knee immobilizer when up and about. Ibuprofen 800 mg and/or Tylenol 1000 mg every 8 hours. You may also alternate these medications for more effective pain relief: Ibuprofen --4 HRS--> Tylenol --4 HRS--> ibuprofen --4 HRS--> Tylenol .... OxyIR 5 mg every 4-6 hours as needed for pain. [facility] for further evaluation and treatment - call Sunday a.m. for appointment. Problem Qualifiers Primary Impression: Right patella fracture Encounter type: initial encounter Fracture type: closed Fracture morphology : other fracture Qualified Codes: S82.091A - Other fracture of right patella , initial encounter for closed fracture
== END 2017-06-10 00:18 | disposition home or self-care (01) ==
LOC: C.EDB 22:27
DX: S82.091A Other fracture of right patella, initial encounter for closed fracture (principal); X50.9XXA Other and unspecified overexertion or strenuous movements or postures, initial encounter; Z87.891 Personal history of nicotine dependence; Z79.82 Long term (current) use of aspirin

== ENCOUNTER → 2017-08-10 | Outpatient (CLI) | payer OTHER ==
[~2017-08-10] VITALS: Ht 182.9 cm; Wt 104.9 kg
[~2017-08-10] MED LIST changes: +ASPCH81X PO; +CHOL1000 PO
[2017-08-10 15:34] VITALS: BP 155/69; PULSE 70; Ht 182.9 cm; Wt 104.9 kg
== END | disposition home or self-care (01) ==
LOC: C.NEUR 14:55
PROVIDERS: ATTEND Internal Medicine Pulmonary Disease
DX: D86.3 Sarcoidosis of skin (principal); G47.19 Other hypersomnia; D86.0 Sarcoidosis of lung; R06.83 Snoring

== ENCOUNTER → 2017-09-04 | Outpatient (CLI) | payer OTHER ==
--- NOTE | 2017-09-05 06:32 | SPLIT NIGHT TECHNICIAN REPORT ---
[facility] Split Night Polysomnogram - Reconciliation Clerk Report Study date: 09/04/2017 Referring Physician: Cody Vann M.D. Name: RUDY AHUMADA Reconciliation Clerk: DOYLE Amador. Date of : 1955 Height: 62 years, Height 6' 0" Sex: Male Weight: 230 lbs Age: 62 Neck Circum: 18 in BMI: Medications: 31.19 ASPIRIN 81 MG, DIGESTIVE ENZYME, MULTI VIT, PREDNISONE 5 MG, URSODIOL 300 MG Patient History 62 yr-old male here for a baseline/modified split study (CPAP to be introduced if AHI exceeds 15). He has a history of snoring, witnessed apneas, and weight gain. His [place] scale is 10. The test was started on room air. ETCO2 testing was not utilized during this study. Room 3 Parameters Monitored NPSG: E1-M2, E2-M1, Fp1-M2, Fp2-M1, F3-M2, F4-M2, F4-M1, C3-M2, C4-M2, C4-M1, O1-M2, O2-M2, O2-M1, T3-M2, T4-M1, P3-M2, P4-M1, CHIN1, CHIN2, HR, EKG, Legs, PFLOW, SNOR, FLOW, CFLOW, Tidal Volume, THOR, ABDO, SpO2, PLTH, CPRESS, ETCO2 Wave, ETCO2, pH SLEEP SUMMARY DATA DIAGNOSTIC TREATMENT Lights Out: 10:31:21 PM 12:46:21 AM Lights On: 12:33:21 AM 5:34:21 AM Total Recording Time (TRT): 122.0 min. 288.0 min. Total Sleep Time (TST): 93.5 min. 277.0 min. NREM Time: 89.5 min. 237.0 min. REM Time: 4.0 min. 40.0 min. Sleep Period Time (SPT): 108.5 min. 286.0 min. Sleep Efficiency (SE): 77 % 96 % Sleep Latency: 13.5 min. 2.0 min. Arousal Index: 21.8 16.0 PAP Treatment Levels: 4, 6, 8, 8/4, 10/5, 12/6, 14/8, 15/8, 17/10, 19/12 * Optimal Pressure(s) SLEEP STAGING DATA DIAGNOSTIC TREATMENT Duration (min) TST % Duration (min) TST % Stage Wake: 28.5 min. -- 11.0 min. -- WASO: 15.0 min. -- 9.0 min. -- NREM: 89.5 min. 96 % 237.0 min. 86 % Stage N1: 17.5 min. 19 % 44.0 min. 16 % Stage N2: 57.5 min. 61 % 185.5 min. 67 % Stage N3: 14.5 min. 16 % 7.5 min. 3 % REM: 4.0 min. 4 % 40.0 min. 14 % POSITIONAL DATA Event Count Index Event Count Index Supine: 16 39 217 66.2 Supine NREM: 16 38.8 210 73.0 Supine REM: N/A N/A 7 16 Non-Supine: 24 18.8 93 67.2 Non-Supine NREM: 23 19.0 91 82.7 Non-Supine REM: 1 15.0 2 7.1 AROUSAL SUMMARY DATA: Event Count Index Event Count Index Apnea Arousals: 1 0.6 17 18.8 Hypopnea Arousals: 10 6.4 17 3.7 Snore Arousals: 3 1.9 11 2.4 PLM Arousals: 0 0.0 1 0.2 Non-Specific Arousals: 17 10.9 27 5.8 Total Arousals: 34 21.8 74 16.0 MYOCLONUS (PLM) Event Count Index Event Count Index PLM: 0 0.0 7 1.5 PLM AROUSAL: 0 0.0 1 0.2 PLM W/O AROUSAL 0 0.0 6 1.3 PLM W/RESP EVENT 0 0.0 1 0.0 MYOCLONUS (PLM) Event Count Index Event Count Index LM: 1 8.3 21 4.5 LM AROUSAL: 1 0.6 1 0.2 LM W/O AROUSAL LM W/RESP EVENT LM NON SPECIFIC 8 5.1 19 4.1 HEART RATE DATA DIAGNOSTIC TREATMENT Sleep (bpm): 57 51 REM (bpm): 86 89 NREM (bpm): 87 90 Tachycardia Count: 0 0 Tachycardia Duration: 0.00 0 Bradycardia Count: 0 0 Bradycardia Duration: 0.00 0 DIAGNOSTIC PORTION TREATMENT PORTION RESPIRATORY DATA Event Count Index Event Count Index AHI: -- 23.1 -- 66.5 RDI: -- 25.7 -- 67 Obstructive Apnea: 1 0.6 0 0.0 Central Apnea: 0 0.0 87 18.8 Mixed Apnea: 0 0.0 0 0.0 Hypopnea: 35 22.5 220 47.7 RERA: 4 2.6 3 0.6 Total Apneas: 1 0.6 87 18.8 RESPIRATORY DATA REM NREM SLEEP REM NREM SLEEP Supine Position: Obstructive Apneas: N/A 1 1 0 0 0 Central Apneas: N/A 0 0 0 47 47 Mixed Apneas: N/A 0 0 0 0 0 Hypopneas: N/A 12 12 6 161 167 RERA N/A 3 3 1 2 3 Total Supine Events: N/A 16 16 7 210 217 Supine AHI: N/A 38.8 39 16 73.0 66.2 Supine RDI: N/A 47.8 47.8 18.3 73.7 67.1 REM NREM SLEEP REM NREM SLEEP Non-Supine Position: Obstructive Apneas: 0 0 0 0 0 0 Central Apneas: 0 0 0 0 40 40 Mixed Apneas: 0 0 0 0 0 0 Hypopneas: 1 22 23 2 51 53 RERA 0 1 1 0 0 0 Total Supine Events: 1 23 24 2 91 93 Supine AHI: 15.0 19.0 18.8 7.1 82.7 67.2 Supine RDI: 15.0 19.9 19.6 7.1 82.7 67.2 OXYGEN DESTAURATION DATA: Event Count Index Event Count Index REM Desaturations: 3 45.0 18 27.0 NREM Desaturations: 44 29.5 343 86.8 SNORE DATA DIAGNOSTIC TREATMENT Snore Time: 1.8 12:48:21 AM Snore TST%: 1 3 Snore Arousal Count: 3 11 Snore Arousal Index: 1.9 2.4 Desaturation Event Summary: Minimum %SpO2 Event Count Mean/Min/Max Duration(sec.) Desaturation Index % Time In Bed > 90 313 19.4 / 8.3 / 57.5 176.1 26.0 86 - 90 203 18.3 / 8.0 / 57.5 43.5 68.2 81 - 85 2 23.6 / 10.0 / 37.3 5.1 5.7 76 - 80 0 N/A 0.0 0.0 71 - 75 0 N/A 0.0 0.0 66 - 70 0 N/A 0.0 0.0 61 - 65 0 N/A 0.0 0.0 56 - 60 0 N/A 0.0 0.0 51 - 55 0 N/A 0.0 0.0 < 50 0 N/A 0.0 0.0 OXYGEN SATURATION DATA DIAGNOSTIC TREATMENT SpO2 Mean Sleep: 87 % 90 % SpO2 Mean REM: 86 % 89 % SpO2 Mean NREM: 87 % 90 % SpO2 Minimum Sleep: 81 % 82 % SpO2 Minimum REM: 81 % 84 % SpO2 Minimum NREM: 82 % 82 % Time Below 90% (TST): 85.7 140.3 Time Below 88% (TST): 63.7 65.6 Total REM NREM Awake <50% 0.0 min. 0.0 min. 0.0 min. 0.0 min. 51 - 60% 0.0 min. 0.0 min. 0.0 min. 0.0 min. 61 - 70% 0.0 min. 0.0 min. 0.0 min. 0.0 min. 71 - 80% 0.0 min. 0.0 min. 0.0 min. 0.0 min. 81 - 90% 303.3 min. 33.0 min. 242.3 min. 28.0 min. 91 - 100% 106.7 min. 11.0 min. 84.1 min. 11.5 min. Average 89 89 89 89 Minimum SpO2 81 81 82 82 Desaturation Event Index 62.9 28.6 71.1 36.5 # Desat. Events below 89% 383 20 341 22 Time(%) with Saturation below 89% 47.3 3.6 40.8 2.9 Time(min.) with Saturation below 89% 193.9 14.7 167.4 11.9 Recording Reconciliation Clerk Comments: Mr. Ahumada slept in the right, left, and supine positions. No cardiac arrhythmia or PLMs noted. No bruxism noted. Snoring was noted and scored as a 2 on a scale of 1 through 5. (0=no snoring, 5=snoring loud enough to be heard through a closed door or down the fountain way). At 12:30 am, he met specific Split-Night criteria during the diagnostic portion of this study. CPAP was initiated at +4 CMH2O and up-titrated to a level of +8 CMH2O, Cflex 2. Due to central apneas, he was then changed over to BiPAP at +8/4 CMH2O and up-titrated to a level of +XX/XX CMH2O BiFlex 2. At every pressure, he had many hypopneas that were very uniform in length and breathing amplitude (please refer to the printout). A rate was later added at 16 BPM but did not have an effect upon the respiratory events. Pressures were increased to high levels to try to treat the respiratory events; however, all of the pressures above 12/6 CMH2O had no effect. A Simplus full face mask size medium from [employer] was used during titration. He awoke to use the restroom one time during the night. Mr. Ahumada stated that he slept poorly. The final report will be interpreted and signed by a sleep physician. The completed physician report will then be placed in the patient medical record. Therapy Event: Therapy (cm H20) 0 4 6 8 8/4 10/5 Total Time at Pressure (min.) 122.0 12.6 15.7 25.2 23.2 39.6 TST at Pressure (min.) 93.5 7.6 15.7 25.2 22.7 39.1 # Periods 1 1 1 1 1 1 Sleep Onset (min.) 13.5 2.0 0.0 0.0 0.0 0.0 REM Onset (min.) 118.0 N/A N/A N/A N/A 4.8 Sleep Efficiency % 76 60 100 100 97 98 Wakefulness (%) 23.4 39.5 0.0 0.0 2.2 1.3 Wakefulness (min.) 28.5 5.0 0.0 0.0 0.5 0.5 NREM 1 (%) 14.3 60.5 8.7 0.0 2.2 41.7 NREM 1 (min.) 17.5 7.6 1.4 0.0 0.5 16.5 NREM 2 (%) 47.1 0.0 91.3 78.3 87.0 26.7 NREM 2 (min.) 57.5 0.0 14.3 19.7 20.2 10.6 NREM 3 (%) 11.9 0.0 0.0 21.7 8.7 0.0 NREM 3 (min.) 14.5 0.0 0.0 5.5 2.0 0.0 REM (%) 3.3 0.0 0.0 0.0 0.0 30.3 REM (min.) 4.0 0.0 0.0 0.0 0.0 12.0 # Arousals 34 13 6 1 3 24 Arousal Index 21.8 102.0 23.0 2.4 7.9 36.8 # Snore 53 2 6 5 3 77 Snore Index 34.0 15.7 23.0 11.9 7.9 118.2 AHI 23.1 109.9 92.0 104.9 50.2 64.5 AHI Supine 38.8 110.6 N/A N/A 0.0 64.5 AHI Non-Supine 18.8 0.0 92.0 104.9 51.5 N/A NREM AHI 23.5 109.9 92.0 104.9 50.2 79.7 REM AHI 15.0 N/A N/A N/A N/A 30.0 RDI 25.7 117.7 92.0 104.9 50.2 67.5 # Obstructive 1 0 0 0 0 0 # Central Ap 0 5 9 30 0 6 # Mixed 0 0 0 0 0 0 # Hypopneas 35 9 15 14 19 36 RERAS 4 1 0 0 0 2 Total Respiratory Events 40 15 24 44 19 44 Time Below SpO2 89.00% (min.) 79.0 2.9 8.6 14.2 17.3 20.7 Mean NREM SpO2 (%) 87 89 88 88 87 89 Mean REM SpO2 (%) 86 N/A N/A N/A N/A 88 Mean Sleep SpO2 (%) 87 89 88 88 87 89 Min NREM SpO2 (%) 82 85 85 85 83 83 Min REM SpO2 (%) 81 N/A N/A N/A N/A 84 Position Supine (min.) 20.1 7.6 0.0 0.0 0.6 39.1 Position Non-supine (min.) 73.4 0.0 15.7 25.2 22.1 0.0 LM Index Sleep 8.3 7.8 0.0 0.0 5.3 21.5 LM Index NREM 8.0 7.8 0.0 0.0 5.3 22.1 LM Index REM 15.0 N/A N/A N/A N/A 20.0 Mean Heart Rate (bpm) 57 50 49 50 52 53 Min Heart Rate (bpm) 46 44 45 44 47 44 Therapy (cm H20) 03/21 14 1530/0112 Total Time at Pressure (min.) 20.8 24.9 46.3 12.8 67.0 TST at Pressure (min.) 20.8 24.4 43.8 12.3 65.5 # Periods 1 1 1 1 1 Sleep Onset (min.) 0.0 0.0 0.0 0.0 0.0 REM Onset (min.) N/A N/A 15.1 N/A 44.0 Sleep Efficiency % 100 98 94 96 97 Wakefulness (%) 0.0 2.0 5.4 3.9 2.2 Wakefulness (min.) 0.0 0.5 2.5 0.5 1.5 NREM 1 (%) 7.2 2.0 18.4 11.7 9.0 NREM 1 (min.) 1.5 0.5 8.5 1.5 6.0 NREM 2 (%) 92.8 96.0 39.5 84.4 72.4 NREM 2 (min.) 19.3 23.9 18.3 10.8 48.5 NREM 3 (%) 0.0 0.0 0.0 0.0 0.0 NREM 3 (min.) 0.0 0.0 0.0 0.0 0.0 REM (%) 0.0 0.0 36.7 0.0 16.4 REM (min.) 0.0 0.0 17.0 0.0 11.0 # Arousals 2 2 10 4 9 Arousal Index 5.8 4.9 13.7 19.5 8.3 # Snore 57 15 104 13 22 Snore Index 164.7 36.9 142.5 63.3 20.2 AHI 75.1 113.2 57.6 77.9 31.2 AHI Supine 75.1 113.2 90.9 77.9 31.2 AHI Non-Supine N/A N/A 18.0 N/A N/A NREM AHI 75.1 113.2 89.6 77.9 37.5 REM AHI N/A N/A 7.1 N/A 0.0 RDI 75.1 113.2 57.6 77.9 31.2 # Obstructive 0 0 0 0 0 # Central Ap 5 4 10 7 11 # Mixed 0 0 0 0 0 # Hypopneas 21 42 32 9 23 RERAS 0 0 0 0 0 Total Respiratory Events 26 46 42 16 34 Time Below SpO2 89.00% (min.) 12.2 7.8 12.0 2.8 4.6 Mean NREM SpO2 (%) 89 90 90 91 91 Mean REM SpO2 (%) N/A N/A 89 N/A 91 Mean Sleep SpO2 (%) 89 90 90 91 91 Min NREM SpO2 (%) 83 84 82 85 85 Min REM SpO2 (%) N/A N/A 84 N/A 88 Position Supine (min.) 20.8 24.4 23.8 12.3 65.5 Position Non-supine (min.) 0.0 0.0 20.0 0.0 0.0 LM Index Sleep 2.9 0.0 6.9 0.0 4.6 LM Index NREM 2.9 0.0 6.7 0.0 2.2 LM Index REM N/A N/A 7.1 N/A 16.4 Mean Heart Rate (bpm) 51 51 53 49 50 Min Heart Rate (bpm) 44 45 43 43 42 CPAP REPORT Therapy Detail Time / Page # Comment CPAP 4 cm H2O Full Face Mask Flex Pressure Relief Humidifier on 12:46:13 AM / pg. 451 HE NOW HAS OVER 2 HOURS OF TEST RECORDING TIME AND HIS AHI IS ABOVE 15 (PER DOCTOR'S ORDER). CPAP 6 cm H2O Full Face Mask Flex Pressure Relief Humidifier on 12:59:00 AM / pg. 477 INCREASED FOR HYPOPNEAS CPAP 8 cm H2O Full Face Mask Flex Pressure Relief Humidifier on 1:14:39 AM / pg. 508 INCREASED FOR HYPOPNEAS BiLevel 8/4 cm H2O Full Face Mask Flex Pressure Relief Humidifier on 1:39:49 AM / pg. 558 HAVING CENTRAL APNEAS, CHANGING TO BIPAP BiLevel 10/5 cm H2O Full Face Mask Flex Pressure Relief Humidifier on 2:03:03 AM / pg. 605 INCREASED IPAP FOR HYPOPNEAS AND INCREASED EPAP TO KEEP THE PRESSURE DIFFERENTIAL TO 5 INSTEAD OF 6 BiLevel 12/6 cm H2O Full Face Mask Flex Pressure Relief Humidifier on 2:42:38 AM / pg. 684 INCREASED IPAP FOR HYPOPNEAS AND INCREASED EPAP TO KEEP THE PRESSURE DIFFERENTIAL FROM GETTING TOO FAR APART BiLevel 14/8 cm H2O Full Face Mask Flex Pressure Relief Humidifier on 3:03:24 AM / pg. 726 INCREASED IPAP FOR HYPOPNEAS, INCREASED EPAP TO KEEP PRESSURE DIFFERENTIAL BiLevel 15/8 cm H2O Full Face Mask Flex Pressure Relief Humidifier on 3:28:17 AM / pg. 775 INCREASED IPAP FOR MORE HYPOPNEAS BiLevel 17/10 cm H2O, Rate 16 bpm Full Face Mask Flex Pressure Relief Humidifier on 4:14:34 AM / pg. 868 INCREASED IPAP FOR HYPOPNEAS, INCREASED EPAP TO KEEP PRESSURE DIFFERENTIAL AND ADDED A RATE FOR MORE CENTRAL APNEAS BiLevel 19/12 cm H2O, Rate 16 bpm Full Face Mask Flex Pressure Relief Humidifier on 4:27:24 AM / pg. 894 INCREASED IPAP FOR HYPOPNEAS AGAIN AND INCREASED EPAP TO KEEP THE PRESSURE DIFFERENTIAL FROM BEING TOO LARGE
--- NOTE | 2017-09-06 21:09 | POLYSOMNOGRAPH REPORT ---
CLINICAL DATA: A 62-year-old male with BMI of 31.2 referred by myself and Dr. Lauren for a split night sleep study. He has had weight gain, witnessed apnea, and snoring. This was a split night study. SLEEP ARCHITECTURE: For the diagnostic portion of the study, sleep period time was 108.5 minutes. Total sleep time was 93.5 minutes divided between 89.5 minutes of non-REM sleep and 4 minutes of REM sleep. Sleep latency was 13.5 minutes. Sleep efficiency was 77%. Sleep consisted of stage N1 19%, stage N2 61%, stage N3 16%, and REM 4%. For the treatment portion of the study, sleep period time was 286 minutes. Total sleep time was 277 minutes divided between 237 minutes of non-REM sleep and 40 minutes of REM sleep. Sleep latency was 2 minutes. Sleep efficiency was 96%. Sleep consisted of stage N1 16%, stage N2 67%, stage N3 3%, and REM 14%. AROUSAL DATA: Prior to treatment, 34 arousals were recorded for an index of 21.8 per hour. During treatment, 74 arousals were recorded for an index of 16 per hour. PLM DATA: Prior to treatment, 8 limb movements during sleep were noted for an index of 5.1 per hour. During treatment, 21 limb movements during sleep were noted for an index of 4.5 per hour. EKG: Heart rates ranged from 51-90 beats per minute. No arrhythmias were noted. RESPIRATORY DATA: Moderate sleep apnea was diagnosed prior to treatment. The diagnostic AHI was 23 and RDI was 26. There was 1 obstructive apneic episode, 35 hypopneic episodes, and 4 RERAs. The average AHI with treatment was 66.5. There were 87 central apneic episodes, and 220 hypopneic episodes. OXIMETRY DATA: Nocturnal hypoxemia was seen prior to treatment. Oxygen adamaris was 81% during REM prior to treatment. Mean saturation with treatment was 90%. GENERAL ASSEMBLER'S COMMENTS AND TREATMENT SUMMARY: The patient slept in the right, left, and supine positions. Snoring was mild, rated 2 on a scale of 1-5. At 12:30 a.m., he met split night criteria. He was initially started on CPAP, but developed treatment onset central apneas and was switched to BIPAP eventually titrating up to a final pressure setting of 19/12 with a backup rate of 16. All pressures on BiPAP were ineffective and did not lead to resolution of the central apneic episodes. He did use a Simplus full face mask, size medium from [employer]. He slept poorly during the night. IMPRESSION: Moderate complex sleep apnea with development of treatment onset central apneic episodes with PAP therapy. RECOMMENDATIONS: The patient will be seen back in followup. Options include a trial of auto CPAP or an ASV titration. MTDD
== END | disposition home or self-care (01) ==
LOC: C.NEUR 21:00
PROVIDERS: ATTEND Internal Medicine Pulmonary Disease
DX: D86.3 Sarcoidosis of skin (principal); G47.19 Other hypersomnia; D86.0 Sarcoidosis of lung; R06.83 Snoring

== ENCOUNTER → 2017-12-05 | Outpatient (CLI) | payer OTHER ==
[2017-12-05 14:06] LABS: BASO % 2.4 %; BASO ABS # 0.08 K/uL (0-0.2); EOS % 4.6 %; EOS ABS # 0.15 K/uL (0-0.5); HEMATOCRIT 42.6 % (42-52); HEMOGLOBIN 14.6 g/dL (14.0-18.0); IG# 0.01 K/uL (0.00-0.02); LYMPH % 22.3 %; LYMPH ABS # 0.73 K/uL (1.2-3.4); MEAN CELL VOLUME 88.9 fL (80-100); MEAN CORPUSCULAR HEMOGLOBIN 30.5 pg (25-34); MEAN CORPUSCULAR HGB CONC 34.3 g/dl (32-36); MEAN PLATELET VOLUME 10.3 fL (7.4-10.4); MONO % 17.7 %; MONO ABS # 0.58 K/uL (0.11-0.59); NEUT % 52.7 %; NEUT ABS # 1.73 K/uL (1.4-6.5); PLATELET COUNT 225 K/uL (130-400); RED CELL DISTRIBUTION WIDTH CV 12.8 % (11.5-14.5); RED CELL DISTRIBUTION WIDTH SD 41.5 fL (36.4-46.3); WHITE BLOOD COUNT 3.28 K/uL (4.8-10.8)
[2017-12-05 14:18] LABS: ALBUMIN 3.6 gm/dl (3.4-5.0); ALKALINE PHOSPHATASE 125 U/L (45-117); ALT/SGPT 65 U/L (12-78); AST/SGOT 31 U/L (15-37); BLOOD UREA NITROGEN 15 mg/dl (7-18); CALCIUM 8.7 mg/dl (8.5-10.1); CARBON DIOXIDE 27 mmol/L (21-32); CHOLESTEROL 260 mg/dl (0-200); CREATININE 1.16 mg/dl (0.60-1.40); GLUCOSE 131 mg/dl (70-99); LDL CHOLESTEROL (DIRECT) 171 mg/dl; POTASSIUM 3.8 mmol/L (3.5-5.1); SODIUM 140 mmol/L (136-145); TOTAL PROTEIN 7.7 gm/dl (6.4-8.2)
[2017-12-06 06:03] LABS: HEMOGLOBIN A1C 6.6 % (4.5-5.6)
== END | disposition home or self-care (01) ==
LOC: C.LABSPEC 13:20
PROVIDERS: ATTEND Internal Medicine
DX: E11.9 Type 2 diabetes mellitus without complications (principal); E55.9 Vitamin D deficiency, unspecified; E78.5 Hyperlipidemia, unspecified; D86.9 Sarcoidosis, unspecified